=== PATIENT | male | born 1995 | race Caucasian/White ===

== ENCOUNTER 2018-08-23 12:30 | Emergency (ER) | payer BC ==
[~2018-08-23] VITALS: Ht 182.9 cm; Wt 72.7 kg
[~2018-08-23 12:30] MED LIST: TOPROL XL 50MG50 MG PO; ZOLOFT 25MG25 MG PO
[2018-08-23 13:05] LABS: BASO % 0.4 % (0.0-2.0); EOS # 0.1 (0.0-0.7); EOS % 1.6 % (0-4.0); GRAN # 5.8 (1.4-6.5); HEMATOCRIT 40.6 % (42.0-52.0); HEMOGLOBIN 13.9 g/dl (13.5-18.0); LYMPH % 13.5 % (20.0-51.0); MEAN CELL VOLUME 92 fl (80.0-100.0); MEAN CORPUSCULAR HEMOGLOBIN 32 pg (27.0-31.0); MEAN CORPUSCULAR HGB CONC 34 g/dl (33.0-37.0); MEAN PLATELET VOLUME 9.7 fl (7.4-10.4); MONO # 0.6 (0.1-0.6); MONO % 8.1 % (1.7-9.3); PLATELET COUNT 215 K/mm3 (130-400)
[2018-08-23 13:17] LABS: ALBUMIN 4.3 gm/dL (3.5-5.0); BILIRUBIN,TOTAL 0.7 mg/dL (0.0-1.0); CALCIUM 9.5 mg/dL (8.4-10.2); CREATININE, serum 0.72 mg/dL (0.66-1.25); POTASSIUM 3.9 mmol/L (3.4-5.0); TOTAL PROTEIN 7.4 gm/dL (6.4-8.2)
[2018-08-23 14:42] VITALS: BP 114/72; PULSE 72; TEMP 97.5
== END 2018-08-23 14:42 | disposition home or self-care (01) ==
LOC: COL.ER 12:30
PROVIDERS: Emergency Medicine
DX: R07.89 Other chest pain (principal)
CPT/HCPCS: J1885

== ENCOUNTER → 2018-12-20 | Emergency (ER) | payer BC ==
[2018-12-20 11:42] VITALS: TEMP 97
[2018-12-20 15:45] VITALS: BP 106/74; PULSE 62
[2018-12-21 18:11] LABS: ANION GAP 14 mmol/L (7-16); BLOOD UREA NITROGEN 11 mg/dL (9-20); C-REACTIVE PROTEIN < 0.5 mg/dL (0.0-0.9); CALCIUM 9.7 mg/dL (8.4-10.2); CARBON DIOXIDE 21 mmol/L (22-30); CHLORIDE 105 mmol/L (98-107); CREATININE, serum 0.79 mg/dL (0.66-1.25); GLUCOSE 88 mg/dL (74-106); POTASSIUM 3.5 mmol/L (3.4-5.0); SODIUM 140 mmol/L (137-145); TROPONIN-I < 0.012 ng/mL (0.000-0.035)
[2018-12-21 19:28] LABS: ALANINE AMINOTRANSFERASE 18 U/L (21-72); ALBUMIN 4.8 gm/dL (3.5-5.0); ALKALINE PHOSPHATASE 57 U/L (50-136); AST,SGOT 33 U/L (15-37); BILIRUBIN,TOTAL 0.6 mg/dL (0.0-1.0); TOTAL PROTEIN 7.9 gm/dL (6.4-8.2)
[2018-12-21 22:38] LABS: BASO % 0.6 % (0.0-2.0); EOS % 0.8 % (0-4.0); GRAN # 3.5 (1.4-6.5); GRAN % 68.7 % (42.2-75.2); HEMATOCRIT 44.5 % (42.0-52.0); HEMOGLOBIN 15.3 g/dl (13.5-18.0); LYMPH % 19.3 % (20.0-51.0); MEAN CELL VOLUME 91 fl (80.0-100.0); MEAN CORPUSCULAR HEMOGLOBIN 31 pg (27.0-31.0); MEAN CORPUSCULAR HGB CONC 34 g/dl (33.0-37.0); MEAN PLATELET VOLUME 10.4 fl (7.4-10.4); MONO # 0.5 (0.1-0.6); MONO % 10.2 % (1.7-9.3); PLATELET COUNT 238 K/mm3 (130-400); RED BLOOD COUNT 4.91 M/mm3 (4.20-5.60); REDCELL DISTRIBUTION WIDTH-CV 12.7 % (11.5-14.5)
== END ==
LOC: COL.ER 11:42
PROVIDERS: Family Medicine
DX: R07.89 Other chest pain (principal); R00.2 Palpitations

== ENCOUNTER 2019-02-26 10:59 | Emergency (ER) | payer BC ==
[~2019-02-26] VITALS: Ht 182.9 cm; Wt 77.3 kg
[2019-02-26 11:01] VITALS: TEMP 97.7
[2019-02-26 11:23] LABS: BASO % 0.2 % (0.0-2.0); EOS % 0.9 % (0-4.0); GRAN # 3.1 (1.4-6.5); HEMATOCRIT 42.5 % (42.0-52.0); HEMOGLOBIN 14.7 g/dl (13.5-18.0); LYMPH # 0.9 (1.2-3.4); LYMPH % 19.5 % (20.0-51.0); MEAN CELL VOLUME 90 fl (80.0-100.0); MEAN CORPUSCULAR HEMOGLOBIN 31 pg (27.0-31.0); MEAN CORPUSCULAR HGB CONC 35 g/dl (33.0-37.0); MEAN PLATELET VOLUME 9.8 fl (7.4-10.4); MONO # 0.5 (0.1-0.6); MONO % 10.2 % (1.7-9.3); PLATELET COUNT 222 K/mm3 (130-400); RED BLOOD COUNT 4.71 M/mm3 (4.20-5.60); REDCELL DISTRIBUTION WIDTH-CV 11.9 % (11.5-14.5)
[2019-02-26 11:34] LABS: ALANINE AMINOTRANSFERASE 12 U/L (21-72); ALBUMIN 4.6 gm/dL (3.5-5.0); ALKALINE PHOSPHATASE 52 U/L (50-136); ANION GAP 14 mmol/L (7-16); AST,SGOT 19 U/L (15-37); BILIRUBIN,TOTAL 1.2 mg/dL (0.0-1.0); BLOOD UREA NITROGEN 21 mg/dL (9-20); CALCIUM 9.9 mg/dL (8.4-10.2); CARBON DIOXIDE 22 mmol/L (22-30); CHLORIDE 105 mmol/L (98-107); CREATININE, serum 0.87 (0.66-1.25); GLUCOSE 99 mg/dL (74-106); LIPASE 73 U/L (23-300); POTASSIUM 4.1 mmol/L (3.4-5.0); SODIUM 141 mmol/L (137-145); TOTAL PROTEIN 7.7 gm/dL (6.4-8.2)
[2019-02-26 11:40] LABS: D-DIMER < 200.00 ng/mLDDu (200-230); INR 1.1 (0.8-3.0); PROTHROMBIN TIME 12.4 SECONDS (9.7-12.8)
[2019-02-26 11:48] LABS: TROPONIN-I < 0.012 ng/mL (0.000-0.035)
[2019-02-26 12:51] VITALS: BP 96/66; PULSE 63
== END 2019-02-26 13:00 | disposition home or self-care (01) ==
LOC: COL.ER 10:59
PROVIDERS: Emergency Medicine
DX: R00.2 Palpitations (principal); R55 Syncope and collapse; F17.210 Nicotine dependence, cigarettes, uncomplicated
CPT/HCPCS: J7030

== ENCOUNTER 2019-07-16 13:26 | Emergency (ER) | payer BC ==
[~2019-07-16] VITALS: Ht 182.9 cm; Wt 65.9 kg
[2019-07-16 13:31] VITALS: TEMP 98.3
[2019-07-16 13:54] LABS: BASO % 0.6 % (0.0-2.0); EOS % 0.8 % (0-4.0); GRAN # 3.1 (1.4-6.5); GRAN % 62.6 % (42.2-75.2); HEMATOCRIT 41.3 % (42.0-52.0); HEMOGLOBIN 14.3 g/dl (13.5-18.0); LYMPH # 1.3 (1.2-3.4); LYMPH % 26.1 % (20.0-51.0); MEAN CELL VOLUME 90 fl (80.0-100.0); MEAN CORPUSCULAR HEMOGLOBIN 31 pg (27.0-31.0); MEAN CORPUSCULAR HGB CONC 35 g/dl (33.0-37.0); MEAN PLATELET VOLUME 10.3 fl (7.4-10.4); MONO # 0.5 (0.1-0.6); MONO % 9.7 % (1.7-9.3); PLATELET COUNT 194 K/mm3 (130-400); RED BLOOD COUNT 4.57 M/mm3 (4.20-5.60); REDCELL DISTRIBUTION WIDTH-CV 11.9 % (11.5-14.5)
[2019-07-16 14:08] LABS: ALANINE AMINOTRANSFERASE 18 U/L (21-72); ALBUMIN 4.7 gm/dL (3.5-5.0); ALKALINE PHOSPHATASE 53 U/L (50-136); ANION GAP 12 mmol/L (7-16); AST,SGOT 21 U/L (15-37); BILIRUBIN,TOTAL 0.8 mg/dL (0.0-1.0); BLOOD UREA NITROGEN 15 mg/dL (9-20); CALCIUM 9.5 mg/dL (8.4-10.2); CARBON DIOXIDE 23 mmol/L (22-30); CHLORIDE 106 mmol/L (98-107); CREATININE, serum 0.79 (0.66-1.25); GLUCOSE 82 mg/dL (74-106); LIPASE 64 U/L (23-300); POTASSIUM 3.6 mmol/L (3.4-5.0); SODIUM 140 mmol/L (137-145); TOTAL PROTEIN 7.5 gm/dL (6.4-8.2)
[2019-07-16 14:11] LABS: C-REACTIVE PROTEIN < 0.5 mg/dL (0.0-0.9)
[2019-07-16 14:20] LABS: TROPONIN-I < 0.012 ng/mL (0.000-0.035)
[2019-07-16 16:20] VITALS: BP 117/74; PULSE 62
== END 2019-07-16 16:22 | disposition home or self-care (01) ==
LOC: COL.ER 13:26
PROVIDERS: Emergency Medicine
DX: R07.89 Other chest pain (principal)
CPT/HCPCS: J1885; J2270

== ENCOUNTER 2019-07-19 15:48 | Observation (INO) | payer BC ==
[~2019-07-19] VITALS: Ht 185.4 cm; Wt 63.0 kg
[2019-07-19 16:17] LABS: BASO % 0.2 % (0.0-2.0); EOS % 0.3 % (0-4.0); GRAN # 6.6 (1.4-6.5); GRAN % 70.8 % (42.2-75.2); HEMATOCRIT 44.7 % (42.0-52.0); HEMOGLOBIN 15.1 g/dl (13.5-18.0); LYMPH # 1.8 (1.2-3.4); LYMPH % 18.7 % (20.0-51.0); MEAN CELL VOLUME 93 fl (80.0-100.0); MEAN CORPUSCULAR HEMOGLOBIN 31 pg (27.0-31.0); MEAN CORPUSCULAR HGB CONC 34 g/dl (33.0-37.0); MEAN PLATELET VOLUME 10.5 fl (7.4-10.4); MONO # 0.9 (0.1-0.6); MONO % 9.7 % (1.7-9.3); PLATELET COUNT 219 K/mm3 (130-400); RED BLOOD COUNT 4.82 M/mm3 (4.20-5.60); REDCELL DISTRIBUTION WIDTH-CV 11.9 % (11.5-14.5)
[2019-07-19 16:24] LABS: ALANINE AMINOTRANSFERASE 12 U/L (21-72); ALBUMIN 5.1 gm/dL (3.5-5.0); ALKALINE PHOSPHATASE 74 U/L (50-136); ANION GAP 15 mmol/L (7-16); AST,SGOT 22 U/L (15-37); BILIRUBIN,TOTAL 0.7 mg/dL (0.0-1.0); BLOOD UREA NITROGEN 10 mg/dL (9-20); C-REACTIVE PROTEIN 1.8 mg/dL (0.0-0.9); CARBON DIOXIDE 21 mmol/L (22-30); CHLORIDE 107 mmol/L (98-107); CREATINE KINASE 95 U/L (55-170); CREATININE, serum 0.86 (0.66-1.25); GLUCOSE 143 mg/dL (74-106); POTASSIUM 4.4 mmol/L (3.4-5.0); SODIUM 143 mmol/L (137-145); TOTAL PROTEIN 8.4 gm/dL (6.4-8.2)
[2019-07-19 16:27] LABS: ALCOHOL(ethanol),MEDICAL < 10 mg/dL
[2019-07-19 16:33] LABS: TROPONIN-I < 0.012 ng/mL (0.000-0.035)
[2019-07-19 16:38] LABS: PROLACTIN 35.7 ng/mL (3.7-17.9)
[2019-07-19] MEDS ORDERED: TOPROL XL100 MG PO (16:53)
[2019-07-19] MEDS ORDERED: ZOLOFT 50MG50 MG PO (16:53)
[2019-07-19 20:00] VITALS: BP 120/74; PULSE 101; TEMP 98.3
[2019-07-19 23:27] VITALS: BP 109/71; PULSE 64; TEMP 98.6
[2019-07-20] VITALS (7 sets, daily range): BP systolic 93–132; BP diastolic 47–82; PULSE 45–115; TEMP 97.5–98.9
--- NOTE | 2019-07-20 01:16 | NUR ---
PATIENT ARRIVED TO ROOM 325 AT 2014. PATIENT HAD SEIZURE ACTIVITY AFTER TRANSFERRING TO BED. MILD SHAKING OF EXTREMITIES NOTED FOR 2-3 MINUTES. PATIENT DID NOT LOSE CONSCIOUSNESS. THIGH MUSCLES WERE VISIBLY TWITCHING AFTERWARDS. PATIENT IS DROWSY, BUT ORIENTED. CAN ANSWER QUESTIONS APPROPRIATELY AND OBEY VERBAL COMMANDS. HAS DIFFICULTY OPENING EYES, BUT THEY ARE JOSH. LUNGS ARE CLEAR, BOWEL SOUNDS AUDIBLE. HEART RATE AND RHYTHM NORMAL. HAS NO OPEN WOUNDS NOTED. SEIZURE PADS ON BED, BED IN LOW POSITION, HOB ELEVATED 10 DEGREES. 500 MG OF KEPPRA WAS HUNG AND 1 DOSE OF ATIVAN. WILL CONTINUE TO MONITOR.
[2019-07-20 06:26] LABS: BASO % 0.2 % (0.0-2.0); EOS # 0.1 (0.0-0.7); GRAN # 3.6 (1.4-6.5); LYMPH % 18.4 % (20.0-51.0); MEAN CELL VOLUME 94 fl (80.0-100.0); MEAN CORPUSCULAR HGB CONC 33 g/dl (33.0-37.0); MEAN PLATELET VOLUME 10.6 fl (7.4-10.4); MONO # 0.6 (0.1-0.6); PLATELET COUNT 166 K/mm3 (130-400); RED BLOOD COUNT 3.82 M/mm3 (4.20-5.60); REDCELL DISTRIBUTION WIDTH-CV 12.1 % (11.5-14.5)
[2019-07-20 06:50] LABS: CALCIUM 8.7 mg/dL (8.4-10.2); CREATININE, serum 0.8 (0.66-1.25); POTASSIUM 3.5 mmol/L (3.4-5.0)
[2019-07-20 07:02] LABS: HEMOGLOBIN 11.9 g/dl (13.5-18.0); MEAN CORPUSCULAR HEMOGLOBIN 31 pg (27.0-31.0)
--- NOTE | 2019-07-20 11:45 | NUR ---
Patient laying in bed upon assessment. States he has been having pain on and off in his lower left abdomen that he describes as "twitching pain." Hospitalist notified of pain and order received for tylenol. Patient responds to questions appropriately but typically just answeres with yes and no nods, speaking occasionally. Patient keeps eyes closed most of the time. Multiple visitors at bedside continuously. MRI of head/brain planned for this afternoon. Diet advanced to general but will keep things light in case of need for contrast during the MRI. EEG ordered as well. Patient had episode of nausea late morning. Called doctor to get orders for anti-nausea medication. Zofran, saltines and sprite given. Will continue to monitor. Call light in reach.
--- NOTE | 2019-07-20 12:20 | NUR ---
Custom Ski Maker prayed and offered support with apturi while family and friends were in room.
--- NOTE | 2019-07-20 13:40 | NUR ---
Patient to MRI around 1320. Transferred to wheelchair with 1 assist and stated he felt weak.
--- NOTE | 2019-07-20 17:18 | NUR ---
After returning from MRI earlier in the afternoon patient has been more alert. He is talking more, smiling and making jokes from time to time. He had one episode of neck pain where he tensed up his body and clenched his teeth. He was able to follow commands to try and take deep breaths and relax his shoulders throughout episode.
--- NOTE | 2019-07-20 18:27 | NUR ---
Patient has now had two episodes of tensing up after getting up to try and use the bathroom. We are trying to collect a urine sample but patient has been unable to urinate. Patient's family noted that two of these episodes have now happened after trying to go to the bathroom without success but are unsure what, if any correlation there would be.
[2019-07-20 19:25] LABS: COLLECTION METHOD CLEAN CATCH
[2019-07-20 19:34] LABS: MUCOUS Present /lpf; PH 5 (5-8); SQUAMOUS EPITHELIAL 0-2 /hpf; URINE APPEARANCE Clear; URINE BACTERIA None Seen /hpf; URINE BILIRUBIN Negative (NEGATIVE); URINE BLOOD Negative (NEGATIVE); URINE COLOR Yellow; URINE GLUCOSE Negative (NEGATIVE); URINE KETONE 1+ (NEGATIVE); URINE LEUKOCYTE ESTERASE Negative (NEGATIVE); URINE NITRATE Negative (NEGATIVE); URINE PROTEIN(semi-quant) Negative (NEGATIVE); URINE RBC 0-2 /hpf; URINE UROBILINOGEN Negative (NEGATIVE)
[2019-07-20 19:46] LABS: TRICYCLIC ANTIDEPRESS URINE NEGATIVE
--- NOTE | 2019-07-21 01:49 | NUR ---
PATIENT DOING WELL TONIGHT. WAS ABLE TO URINATE FOR UA. PATIENT HAS NOT HAD AN EPISODE OF MUSCLE TWITCHING DURING THIS SHIFT SO FAR. HE APPEARS TO BE MORE ALERT AND LESS DROWSY THAN LAST NIGHT. DENIES NEED FOR PAIN MEDICATION. DENIES NAUSEA. FAMILY STILL AT BEDSIDE. WILL CONTINUE TO MONITOR.
[2019-07-21 04:32] VITALS: BP 98/53; PULSE 54; TEMP 98.5
[2019-07-21 07:10] LABS: BASO % 0.6 % (0.0-2.0); EOS # 0.1 (0.0-0.7); GRAN % 54.8 % (42.2-75.2); HEMOGLOBIN 11.8 g/dl (13.5-18.0); LYMPH # 1.1 (1.2-3.4); LYMPH % 29.7 % (20.0-51.0); MEAN CELL VOLUME 94 fl (80.0-100.0); MEAN CORPUSCULAR HEMOGLOBIN 32 pg (27.0-31.0); MEAN CORPUSCULAR HGB CONC 34 g/dl (33.0-37.0); MEAN PLATELET VOLUME 10.6 fl (7.4-10.4); MONO # 0.5 (0.1-0.6); MONO % 12.6 % (1.7-9.3); PLATELET COUNT 157 K/mm3 (130-400); RED BLOOD COUNT 3.74 M/mm3 (4.20-5.60); REDCELL DISTRIBUTION WIDTH-CV 11.9 % (11.5-14.5)
[2019-07-21 07:20] LABS: ALBUMIN 3.6 gm/dL (3.5-5.0); BILIRUBIN,TOTAL 0.6 mg/dL (0.0-1.0); CALCIUM 8.4 mg/dL (8.4-10.2); CREATININE, serum 0.73 (0.66-1.25); MAGNESIUM 1.7 mg/dL (1.6-2.3); POTASSIUM 3.7 mmol/L (3.4-5.0); TOTAL PROTEIN 6.1 gm/dL (6.4-8.2)
[2019-07-21 07:21] LABS: HEMATOCRIT 35.1 % (42.0-52.0)
[2019-07-21 07:25] VITALS: BP 106/56; PULSE 55; TEMP 98
--- NOTE | 2019-07-21 09:00 | NUR ---
Patient resting in bed with family at the bedside. A&Ox4, reporting pain in abdomen and neck. Pain medication given when requested. VSS. IV CDI, fluids infusing. Seizure precautions in place. No further needs expressed from patient. Call light within reach
[2019-07-21 12:24] VITALS: BP 108/59; PULSE 57; TEMP 98.8
[2019-07-21 17:18] VITALS: BP 116/76; PULSE 62; TEMP 98.4
--- NOTE | 2019-07-21 18:27 | NUR ---
Patient resting in bed, family and friends at the bedside. A&O, VSS. Patients family has stated that the patient has had several "twitching" episodes throughout the shift. VS stable and monitored throughout shift. Family at the bedside assisting with helping calm patient down. Has reported pain in abdomen and neck, pain medication given when requested. IV CDI. No further needs expressed from patient. Call light within reach
[2019-07-21 19:15] VITALS: BP 108/67; PULSE 62; TEMP 98.4
[2019-07-21 23:51] VITALS: BP 107/68; PULSE 56; TEMP 98
[2019-07-22 04:45] VITALS: BP 101/64; PULSE 51; TEMP 97.9
--- NOTE | 2019-07-22 06:34 | NUR ---
Patient has rested well throughout the night. Visitors at bedside all night. Patient "threw up" but noted to only have a couple small amounts of sputum in bucket. Denies pain. Scheduled for EEG this morning. Will report off to day shift nurse.
[2019-07-22 06:38] LABS: BASO % 0.6 % (0.0-2.0); EOS # 0.1 (0.0-0.7); EOS % 2.5 % (0-4.0); GRAN # 1.5 (1.4-6.5); GRAN % 46.3 % (42.2-75.2); HEMATOCRIT 37.2 % (42.0-52.0); HEMOGLOBIN 12.7 g/dl (13.5-18.0); LYMPH # 1.2 (1.2-3.4); LYMPH % 36.6 % (20.0-51.0); MEAN CELL VOLUME 91 fl (80.0-100.0); MEAN CORPUSCULAR HEMOGLOBIN 31 pg (27.0-31.0); MEAN CORPUSCULAR HGB CONC 34 g/dl (33.0-37.0); MEAN PLATELET VOLUME 10.3 fl (7.4-10.4); MONO # 0.4 (0.1-0.6); MONO % 13.7 % (1.7-9.3); PLATELET COUNT 166 K/mm3 (130-400); RED BLOOD COUNT 4.08 M/mm3 (4.20-5.60); REDCELL DISTRIBUTION WIDTH-CV 11.7 % (11.5-14.5)
[2019-07-22 06:50] LABS: ALBUMIN 4.1 gm/dL (3.5-5.0); BILIRUBIN,TOTAL 0.4 mg/dL (0.0-1.0); CALCIUM 9.1 mg/dL (8.4-10.2); CREATININE, serum 0.76 (0.66-1.25); POTASSIUM 3.5 mmol/L (3.4-5.0); TOTAL PROTEIN 6.9 gm/dL (6.4-8.2)
[2019-07-22 08:18] VITALS: BP 118/79; PULSE 52; TEMP 98
--- NOTE | 2019-07-22 08:45 | NUR ---
PT SITTING UP IN BED, INDEPENDENT IN ROOM AND HALLS. FAMILY VERY INVOLVED. PLAN ON DISCHARGE HOME AFTER CONSULT WITH KELSEY SIBLEY.
[2019-07-22] MEDS ORDERED: KEPPRA 500MG500 MG PO (09:13)
--- NOTE | 2019-07-22 10:35 | NUR ---
DISCHARGE INSTRUCTIONS PROVIDED TO PT AND FAMILY. QUESTIONS ANSWERED. PT LEFT AMBULATORY WITH STAFF AND FAMILY.
== END 2019-07-22 10:38 | disposition home or self-care (01) ==
LOC: COL.ER 15:48 → SURG 18:11
PROVIDERS: Emergency Medicine; Student in an Organized Health Care Education/Training Program; ADMIT Hospitalist
DX: R56.9 Unspecified convulsions (principal); I95.1 Orthostatic hypotension; F32.9 Major depressive disorder, single episode, unspecified; F17.210 Nicotine dependence, cigarettes, uncomplicated
CPT/HCPCS: 99232-AI; A9585; G0378; J1630; J1953; J2060; J2250; J2405; J7030

== ENCOUNTER 2019-09-09 10:14 | Emergency (ER) | payer BC ==
[~2019-09-09] VITALS: Ht 182.9 cm; Wt 63.6 kg
[~2019-09-09 10:14] MED LIST changes: +KEPPRA 500MG500 MG PO; +TOPROL XL100 MG PO; +ZOLOFT 50MG50 MG PO
[2019-09-09 10:32] LABS: BASO % 0.7 % (0.0-2.0); EOS # 0.1 (0.0-0.7); GRAN # 1.9 (1.4-6.5); GRAN % 46.9 % (42.2-75.2); HEMATOCRIT 42.1 % (42.0-52.0); HEMOGLOBIN 14.6 g/dl (13.5-18.0); LYMPH # 1.7 (1.2-3.4); LYMPH % 41.4 % (20.0-51.0); MEAN CELL VOLUME 91 fl (80.0-100.0); MEAN CORPUSCULAR HEMOGLOBIN 32 pg (27.0-31.0); MEAN CORPUSCULAR HGB CONC 35 g/dl (33.0-37.0); MEAN PLATELET VOLUME 10.3 fl (7.4-10.4); MONO # 0.4 (0.1-0.6); PLATELET COUNT 184 K/mm3 (130-400); RED BLOOD COUNT 4.63 M/mm3 (4.20-5.60); REDCELL DISTRIBUTION WIDTH-CV 12.2 % (11.5-14.5)
[2019-09-09 10:45] LABS: ALANINE AMINOTRANSFERASE 22 U/L (21-72); ALKALINE PHOSPHATASE 60 U/L (50-136); ANION GAP 16 mmol/L (7-16); AST,SGOT 24 U/L (15-37); BILIRUBIN,TOTAL 0.7 mg/dL (0.0-1.0); BLOOD UREA NITROGEN 19 mg/dL (9-20); CARBON DIOXIDE 20 mmol/L (22-30); CHLORIDE 106 mmol/L (98-107); CREATININE, serum 0.77 (0.66-1.25); GLUCOSE 91 mg/dL (74-106); LIPASE 96 U/L (23-300); MAGNESIUM 1.8 mg/dL (1.6-2.3); POTASSIUM 4.1 mmol/L (3.4-5.0); SODIUM 142 mmol/L (137-145); TOTAL PROTEIN 8.2 gm/dL (6.4-8.2)
[2019-09-09 10:58] LABS: TROPONIN-I < 0.012 ng/mL (0.000-0.035)
[2019-09-09 12:25] LABS: COLLECTION METHOD CLEAN CATCH
[2019-09-09 12:32] LABS: PH 9 (5-8); SQUAMOUS EPITHELIAL None Seen /hpf; URINE APPEARANCE Clear; URINE BACTERIA None Seen /hpf; URINE BILIRUBIN Negative (NEGATIVE); URINE BLOOD Negative (NEGATIVE); URINE COLOR Yellow; URINE GLUCOSE Negative (NEGATIVE); URINE KETONE Negative (NEGATIVE); URINE LEUKOCYTE ESTERASE Negative (NEGATIVE); URINE NITRATE Negative (NEGATIVE); URINE PROTEIN(semi-quant) Negative (NEGATIVE); URINE RBC 0-2 /hpf; URINE UROBILINOGEN Negative (NEGATIVE)
[2019-09-09] MEDS ORDERED: FLEXERIL 1010 MG/TAB PO (13:20)
[2019-09-09 13:34] VITALS: BP 108/71; PULSE 66; TEMP 98.1
== END 2019-09-09 13:35 | disposition home or self-care (01) ==
LOC: COL.ER 10:14
PROVIDERS: Emergency Medicine
DX: R07.89 Other chest pain (principal); F41.9 Anxiety disorder, unspecified
CPT/HCPCS: J1885; J2060; J7030

== ENCOUNTER 2020-03-18 19:01 | Emergency (ER) | payer BC ==
[~2020-03-18] VITALS: Ht 175.3 cm; Wt 72.7 kg
[~2020-03-18 19:01] MED LIST changes: +FLEXERIL 1010 MG/TAB PO
[2020-03-18 19:20] LABS: BASO % 0.6 % (0.0-2.0); EOS # 0.1 (0.0-0.7); EOS % 1.9 % (0-4.0); GRAN # 3.2 (1.4-6.5); GRAN % 47.5 % (42.2-75.2); HEMATOCRIT 44.1 % (42.0-52.0); HEMOGLOBIN 14.8 g/dl (13.5-18.0); LYMPH # 2.7 (1.2-3.4); LYMPH % 40.2 % (20.0-51.0); MEAN CELL VOLUME 93 fl (80.0-100.0); MEAN CORPUSCULAR HEMOGLOBIN 31 pg (27.0-31.0); MEAN CORPUSCULAR HGB CONC 34 g/dl (33.0-37.0); MEAN PLATELET VOLUME 10.4 fl (7.4-10.4); MONO # 0.6 (0.1-0.6); MONO % 9.1 % (1.7-9.3); PLATELET COUNT 245 K/mm3 (130-400); RED BLOOD COUNT 4.72 M/mm3 (4.20-5.60); REDCELL DISTRIBUTION WIDTH-CV 11.9 % (11.5-14.5)
[2020-03-18 19:31] LABS: ALANINE AMINOTRANSFERASE 23 U/L (4-49); ALKALINE PHOSPHATASE 84 U/L (50-136); ANION GAP 16 mmol/L (7-16); AST,SGOT 23 U/L (15-37); BILIRUBIN,TOTAL 0.5 mg/dL (0.0-1.0); BLOOD UREA NITROGEN 16 mg/dL (9-20); CALCIUM 9.8 mg/dL (8.4-10.2); CARBON DIOXIDE 19 mmol/L (22-30); CHLORIDE 106 mmol/L (98-107); GLUCOSE 133 mg/dL (74-106); POTASSIUM 3.6 mmol/L (3.4-5.0); SODIUM 140 mmol/L (137-145); TOTAL PROTEIN 8.3 gm/dL (6.4-8.2)
[2020-03-18 19:34] LABS: C-REACTIVE PROTEIN < 0.5 mg/dL (0.0-0.9)
[2020-03-18 19:45] LABS: PROLACTIN 35.7 ng/mL (3.7-17.9)
[2020-03-18] MEDS ORDERED: KEPPRA1000 MG PO (20:34)
[2020-03-18 21:08] VITALS: BP 113/80; PULSE 69; TEMP 98.2
[2020-03-18] MEDS ORDERED: TOPROL XL100 MG PO (21:12)
== END 2020-03-18 21:15 | disposition home or self-care (01) ==
LOC: COL.ER 19:01
PROVIDERS: Emergency Medicine
DX: G40.909 Epilepsy, unspecified, not intractable, without status epilepticus (principal)
CPT/HCPCS: J1953; J2060; J7030

== ENCOUNTER 2020-04-15 12:14 | Emergency (ER) | payer BC ==
[~2020-04-15] VITALS: Ht 182.9 cm; Wt 68.2 kg
[~2020-04-15 12:14] MED LIST changes: +KEPPRA1000 MG PO
[2020-04-15 12:16] VITALS: TEMP 98.8
[2020-04-15] MEDS ORDERED: ADVIL200 MG PO (12:22)
[2020-04-15 12:32] LABS: BASO % 0.6 % (0.0-2.0); EOS # 0.1 (0.0-0.7); GRAN # 3.1 (1.4-6.5); GRAN % 64.2 % (42.2-75.2); HEMATOCRIT 40.7 % (42.0-52.0); HEMOGLOBIN 13.9 g/dl (13.5-18.0); LYMPH # 1.1 (1.2-3.4); LYMPH % 21.6 % (20.0-51.0); MEAN CELL VOLUME 92 fl (80.0-100.0); MEAN CORPUSCULAR HEMOGLOBIN 31 pg (27.0-31.0); MEAN CORPUSCULAR HGB CONC 34 g/dl (33.0-37.0); MEAN PLATELET VOLUME 10.1 fl (7.4-10.4); MONO # 0.5 (0.1-0.6); PLATELET COUNT 212 K/mm3 (130-400); RED BLOOD COUNT 4.43 M/mm3 (4.20-5.60); REDCELL DISTRIBUTION WIDTH-CV 11.7 % (11.5-14.5)
[2020-04-15 12:38] LABS: ALANINE AMINOTRANSFERASE 26 U/L (4-49); ALBUMIN 4.3 gm/dL (3.5-5.0); ALKALINE PHOSPHATASE 52 U/L (50-136); ANION GAP 10 mmol/L (7-16); AST,SGOT 22 U/L (15-37); BILIRUBIN,TOTAL 0.5 mg/dL (0.0-1.0); BLOOD UREA NITROGEN 15 mg/dL (9-20); CALCIUM 9.1 mg/dL (8.4-10.2); CARBON DIOXIDE 22 mmol/L (22-30); CHLORIDE 106 mmol/L (98-107); CREATININE, serum 0.76 (0.66-1.25); GLUCOSE 84 mg/dL (74-106); POTASSIUM 4.1 mmol/L (3.4-5.0); SODIUM 137 mmol/L (137-145); TOTAL PROTEIN 7.4 gm/dL (6.4-8.2)
[2020-04-15 12:46] LABS: ALCOHOL(ethanol),MEDICAL < 10 mg/dL
[2020-04-15 12:50] LABS: TROPONIN-I < 0.012 ng/mL (0.000-0.035)
[2020-04-15 12:55] LABS: PROLACTIN 22.2 ng/mL (3.7-17.9)
[2020-04-15 13:37] LABS: TRICYCLIC ANTIDEPRESS URINE NEGATIVE
[2020-04-15 15:05] VITALS: BP 112/59; PULSE 107
== END 2020-04-15 15:10 | disposition home or self-care (01) ==
LOC: COL.ER 12:14
PROVIDERS: Emergency Medicine
DX: R56.9 Unspecified convulsions (principal); R51 Headache; R07.9 Chest pain, unspecified
CPT/HCPCS: J1630; J2550; J7030

== ENCOUNTER 2020-04-16 18:41 | Emergency (ER) | payer BC ==
[~2020-04-16] VITALS: Ht 182.9 cm; Wt 65.9 kg
[~2020-04-16 18:41] MED LIST changes: +ADVIL200 MG PO
[2020-04-16 18:50] VITALS: TEMP 97.9
[2020-04-16 19:06] LABS: BASO # 0.1 (0.0-0.2); BASO % 0.6 % (0.0-2.0); EOS # 0.2 (0.0-0.7); EOS % 2.2 % (0-4.0); GRAN % 47.1 % (42.2-75.2); HEMATOCRIT 46.5 % (42.0-52.0); HEMOGLOBIN 15.6 g/dl (13.5-18.0); LYMPH # 3.5 (1.2-3.4); LYMPH % 40.4 % (20.0-51.0); MEAN CELL VOLUME 92 fl (80.0-100.0); MEAN CORPUSCULAR HEMOGLOBIN 31 pg (27.0-31.0); MEAN CORPUSCULAR HGB CONC 34 g/dl (33.0-37.0); MEAN PLATELET VOLUME 10.1 fl (7.4-10.4); MONO # 0.8 (0.1-0.6); MONO % 9.4 % (1.7-9.3); PLATELET COUNT 280 K/mm3 (130-400); RED BLOOD COUNT 5.03 M/mm3 (4.20-5.60); REDCELL DISTRIBUTION WIDTH-CV 11.7 % (11.5-14.5)
[2020-04-16 19:14] LABS: BILIRUBIN,TOTAL 0.7 mg/dL (0.0-1.0); CALCIUM 9.6 mg/dL (8.4-10.2); CREATININE, serum 0.85 (0.66-1.25); POTASSIUM 3.8 mmol/L (3.4-5.0); TOTAL PROTEIN 8.7 gm/dL (6.4-8.2)
[2020-04-16 19:17] LABS: C-REACTIVE PROTEIN 0.5 mg/dL (0.0-0.9)
[2020-04-16 19:27] LABS: PROLACTIN 57.7 ng/mL (3.7-17.9)
[2020-04-16 20:23] VITALS: BP 111/84; PULSE 83
== END 2020-04-16 20:23 | disposition home or self-care (01) ==
LOC: COL.ER 18:41
PROVIDERS: Family Medicine
DX: R56.9 Unspecified convulsions (principal)
CPT/HCPCS: J2060

== ENCOUNTER → 2020-06-03 | Outpatient (CLI) | payer BC ==
[2020-06-04 11:44] LABS: ANA SCREEN with REFLEX Negative (Negative); SJOGRENS SSB 6 U/mL (0-99)
== END ==
LOC: COL.LAB 12:44
PROVIDERS: Psychiatry & Neurology Neurology
DX: M25.50 Pain in unspecified joint (principal)

== ENCOUNTER → 2020-07-01 | Outpatient (CLI) | payer BC | LOC: BHSO 11:05 | DX: F41.0 Panic disorder [episodic paroxysmal anxiety] (principal) ==

== ENCOUNTER → 2020-07-16 | Outpatient (CLI) | payer BC | LOC: BHSO 10:56 | DX: F43.10 Post-traumatic stress disorder, unspecified (principal) ==

== ENCOUNTER → 2020-07-31 | Outpatient (CLI) | payer BC | LOC: BHSO 13:56 | DX: F41.1 Generalized anxiety disorder (principal) | CPT/HCPCS: G0463 ==

== ENCOUNTER → 2020-08-03 | Outpatient (CLI) | payer BC | LOC: BHSO 13:55 | DX: F33.0 Major depressive disorder, recurrent, mild (principal) ==

== ENCOUNTER → 2020-08-10 | Outpatient (CLI) | payer BC | LOC: BHSO 14:54 | DX: F43.10 Post-traumatic stress disorder, unspecified (principal) ==

== ENCOUNTER → 2020-08-26 | Outpatient (CLI) | payer BC | LOC: BHSO 13:55 | DX: F43.10 Post-traumatic stress disorder, unspecified (principal) ==